=== PATIENT | female | born 1950 | race Caucasian/White ===

== ENCOUNTER 2020-12-10 10:16 | Outpatient (CLI) | payer MEDICARE ==
[2020-12-10 22:50] LABS: SARS-CoV-2 PCR by NAA Not Detected (NotDetected)
== END 2020-12-10 10:17 | disposition home or self-care (01) ==
LOC: CSHLAB 10:16
PROVIDERS: ATTEND Surgery
DX: Z01.812 Encounter for preprocedural laboratory examination (principal); Z20.822 Contact with and (suspected) exposure to COVID-19
CPT/HCPCS: U0003; U0005

== ENCOUNTER 2020-12-13 05:45 | Day surgery (SDC) | payer MEDICARE ==
[2020-12-12 11:11] VITALS: BMI 23.4
[2020-12-13] MEDS ORDERED: Lidocaine 1% MPF 2 ML VIAL ONE (06:29)
[2020-12-13] MEDS ORDERED: Bupivacaine PF 0.5% 30 ML VIAL ONE (06:34)
[2020-12-13] MEDS ORDERED: Scopolamine 1.5 mg/72 hour Patch ONE (07:16)
[2020-12-13] MEDS ORDERED: Glycopyrrolate 0.2 MG/ML 5 ML SYRINGE ONE (07:19)
[2020-12-13] MEDS ORDERED: PROPOFOL 20 ML ONE ×2 (07:19→09:36)
[2020-12-13] MEDS ORDERED: Ondansetron PF 4 MG/2 ML Vial ONE (07:19)
[2020-12-13] MEDS ORDERED: Fentanyl 100 MCG/2 ML VIAL ONE ×2 (07:19→08:54)
[2020-12-13] MEDS ORDERED: Rocuronium Bromide 10 MG/ML (10ML VIAL) ONE (07:19)
[2020-12-13] MEDS ORDERED: Dexamethasone 4 mg/ml Vial ONE (07:19)
[2020-12-13] MEDS ORDERED: Lidocaine 2% PF 5 ML VIAL ONE (07:20)
[2020-12-13] MEDS ORDERED: ceFAZolin 2 GM/DEX 5% 100 ML BAG ONE (07:26)
[2020-12-13] MEDS ORDERED: Metoclopramide HCl 10 MG/2 ML VIAL ONE (07:32)
[2020-12-13] MEDS ORDERED: Famotidine/PF 20 mg/2ml Vial ONE (07:32)
[2020-12-13] MEDS ORDERED: HYDROcodone/Acetaminophen 5/325 mg Tablet PO PRN (08:43)
[2020-12-13] MEDS ORDERED: EPINEPHrine 1 MG/ML AMP ONE (12:44)
== END 2020-12-13 10:00 | disposition home or self-care (01) ==
LOC: CSHSDC 05:45
PROVIDERS: ATTEND Surgery
PROC: 0YU64JZ Supplement Left Inguinal Region with Synthetic Substitute, Percutaneous Endoscopic Approach (ICD-10-PCS; principal; 2020-12-13)
DX: K40.90 Unilateral inguinal hernia, without obstruction or gangrene, not specified as recurrent (principal); Z79.899 Other long term (current) drug therapy; Z90.710 Acquired absence of both cervix and uterus; Z85.42 Personal history of malignant neoplasm of other parts of uterus
CPT/HCPCS: J0171; J1100; J2001; J2405; J2704; J2765; J3010; S0020; S0028